=== PATIENT | male | born 1960 ===

== ENCOUNTER 2021-08-09 05:50 | Day surgery (SDC) | payer OTHER ==
[~2021-08-09 05:50] MED LIST: NIFEDIPINE20 MG PO; ROSUVASTATIN CAL5 MG PO
== END 2021-08-09 12:05 | disposition home or self-care (01) ==
LOC: CIR.AMB 05:50
PROVIDERS: ATTEND Surgery
DX: K43.6 Other and unspecified ventral hernia with obstruction, without gangrene (principal); Z20.822 Contact with and (suspected) exposure to COVID-19; I10 Essential (primary) hypertension; Z86.16 Personal history of COVID-19
CPT/HCPCS: 49653; C1781

== ENCOUNTER 2023-04-03 05:25 | Day surgery (SDC) | payer OTHER ==
[2023-03-23 08:41] LABS: PH,URINE 6.5 (5.0-8.0); URINE APPEARANCE Clear; URINE BILIRRUBIN Negative (NEGATIVE); URINE BLOOD Negative; URINE COLOR Yellow; URINE GLUCOSE Negative (NEGATIVE); URINE LEUKOCYTE Negative; URINE NITRATE Negative; URINE PROTEIN Negative (NEGATIVE); URINE UROBILINOGEN 0.2 E.U./dl
[2023-03-23 08:43] LABS: URINE BACTERIA 15.1 uL (0.0-1933); URINE EPITHELIAL CELLS 1.8 uL (0.0-38.8); URINE WBC 5.2 uL (0.0-23.2)
[2023-03-23 08:44] LABS: HEMATOCRIT 45.7 % (39.0-48.0); HEMOGLOBIN 15.6 g/dL (13-16.00); MEAN CELL VOLUME 94.4 fL (80.0-100.00); MEAN CORPUSCULAR HEMOGLOBIN 32.2 pg (27.00-32.0); MEAN CORPUSCULAR HGB CONC 34.1 g/dl (32.0-36.0); PLATELET COUNT 201 K/uL (150-450); RED BLOOD COUNT 4.84 M/uL (4.00-6.00); RED CELL DISTRIBUTION WIDTH 13.5 % (11.5-14.5)
[2023-03-23 08:52] LABS: URINE RBC 1.5 uL (0.0-20.8)
[2023-03-23 10:13] LABS: INR 0.96; PARTIAL THROMBOPLASTIN TIME 25.8 SECONDS (22.0-34.0); PROTHROMBIN TIME 10.1 SECONDS (9.0-11.5)
[2023-03-23 10:36] LABS: ALBUMIN 4.1 gm/dL (3.4-5.0); BILIRUBIN TOTAL 0.73 mg/dL (0.3-1.2); CALCIUM 8.6 mg/dL (8.5-10.1); CREATININE SERUM 0.94 mg/dL (0.70-1.30); GFR 81.05; GLOBULINA 3.4 G/DL (2.4-3.5); POTASSIUM 4.78 mEq/L (3.5-5.1); TOTAL PROTEIN 7.5 gm/dL (6.4-8.2)
[~2023-04-03] VITALS: Ht 172.7 cm; Wt 88.5 kg
[~2023-04-03 05:25] MED LIST changes: +LOSARTAN-HCTZ1 EAC1 PO
== END 2023-04-03 11:20 | disposition home or self-care (01) ==
LOC: CIR.AMB 05:25 → O/R 05:25 → SURH 05:25 → EDSTATUS 10:15 → CIR.AMB 10:15 → O/R 11:20 → CIR.AMB 11:20
PROVIDERS: ATTEND Surgery
DX: K43.0 Incisional hernia with obstruction, without gangrene (principal); Z20.822 Contact with and (suspected) exposure to COVID-19
CPT/HCPCS: 49616; C1781

== ENCOUNTER 2023-10-04 08:02 | Outpatient (CLI) | payer OTHER | END 2023-10-04 08:16 | disposition home or self-care (01) | LOC: TOM 08:02 | DX: K43.0 Incisional hernia with obstruction, without gangrene (principal) ==

== ENCOUNTER 2023-10-23 05:24 | Day surgery (SDC) | payer OTHER ==
[2023-10-15 08:28] LABS: HEMATOCRIT 44.4 % (39.0-48.0); HEMOGLOBIN 15.1 g/dL (13-16.00); MEAN CELL VOLUME 95.1 fL (80.0-100.00); MEAN CORPUSCULAR HEMOGLOBIN 32.4 pg (27.00-32.0); PLATELET COUNT 192 K/uL (150-450); RED BLOOD COUNT 4.67 M/uL (4.00-6.00); RED CELL DISTRIBUTION WIDTH 13.2 % (11.5-14.5)
[2023-10-15 08:28] LABS: PH,URINE 6.5 (5.0-8.0); URINE APPEARANCE Clear; URINE BILIRRUBIN Negative (NEGATIVE); URINE BLOOD Negative; URINE COLOR Yellow; URINE GLUCOSE Negative (NEGATIVE); URINE KETONE Negative (NEGATIVE); URINE LEUKOCYTE Negative; URINE NITRATE Negative; URINE PROTEIN Negative (NEGATIVE); URINE UROBILINOGEN 0.2 E.U./dl
[2023-10-15 08:32] LABS: URINE WBC 4.1 uL (0.0-23.2)
[2023-10-15 08:33] LABS: URINE BACTERIA 3.7 uL (0.0-1933); URINE EPITHELIAL CELLS 1.2 uL (0.0-38.8); URINE RBC 1.3 uL (0.0-20.8)
[2023-10-15 08:58] LABS: INR 0.98; PARTIAL THROMBOPLASTIN TIME 26.6 SECONDS (22.0-34.0); PROTHROMBIN TIME 10.3 SECONDS (9.0-11.5)
[2023-10-15 09:11] LABS: ALBUMIN 4.1 gm/dL (3.4-5.0); BILIRUBIN TOTAL 0.61 mg/dL (0.3-1.2); CALCIUM 9.2 mg/dL (8.5-10.1); CREATININE SERUM 0.99 mg/dL (0.70-1.30); GFR 76.35; GLOBULINA 3.4 G/DL (2.4-3.5); POTASSIUM 4.65 mEq/L (3.5-5.1); TOTAL PROTEIN 7.5 gm/dL (6.4-8.2)
[~2023-10-23] VITALS: Ht 172.7 cm; Wt 88.5 kg
[2023-10-23] MEDS ORDERED: CEFAZOLIN SODIUM 1,000 MG VIAL ONE (06:08)
== END 2023-10-23 15:35 | disposition home or self-care (01) ==
LOC: CIR.AMB 05:24
PROVIDERS: ATTEND Surgery
DX: K43.6 Other and unspecified ventral hernia with obstruction, without gangrene (principal)
CPT/HCPCS: 49614; C1781